=== PATIENT | male | born 1980 | race Caucasian/White ===

== ENCOUNTER 2020-05-09 13:42 | Outpatient (REF) | payer MEDICARE, MEDICAID, SELFPAY | END 2020-05-09 13:43 | disposition home or self-care (01) | LOC: HO.LAB 13:42 | PROVIDERS: Visit Provider Internal Medicine | DX: Z20.828 Contact with and (suspected) exposure to other viral communicable diseases (principal) | CPT/HCPCS: 36415; C9803; U0003 ==

== ENCOUNTER 2020-12-27 06:26 | Emergency (ER) | payer MEDICARE, MEDICAID, SELFPAY ==
[2020-12-27 06:41] VITALS: RESP 20; BMI 30.4
--- NOTE | 2020-12-27 07:11 | ED.GENADULT ---
HPI - General Adult General Chief complaint: General Medical Stated complaint: COVID Test Time Seen by Provider: 12/27/20 07:11 Source: patient Mode of arrival: ambulatory Limitations: no limitations History of Present Illness MD complaint: wants COVID test Onset (ago): day(s) (1) Severity: mild Relieving factors: none Exacerbating factors: none Associated symptoms: denies other symptoms Treatments prior to arrival: none Related Data Allergies Allergy/AdvReac Type Severity Reaction Status Date / Time adhesive [Adhesive] Allergy Unknown RASH FROM Unverified 01/21/20 15:17 GLUE Review of Systems Review of Systems: Constitutional : No Fever, No Chills, Cardiovascular : No Chest Pain, No SOB Respiratory : No Dyspnea, no cough Gastrointestinal : No abdominal pain, no n/v/d Musculoskeletal : No Joint Swelling, no myalgias Skin : No rash, no skin lesions Neuro : No Weakness, No Numbness PMFSH Past Medical History Attestation statement: The following information was validated with the patient. Medical History (Updated 12/27/20 @ 07:52 by Gaby Tobin DO) Diabetes Social History Social History (Updated 12/27/20 @ 07:52 by Gaby Tobin DO) Patient Tobacco Use Status: Current everyday Tobacco user Advance Directives: No Advance Directives Information Provided: No Physical Exam Vital Signs: Vital Signs: Last Vital Signs Temp 98.3 F 12/27/20 07:31 Pulse 88 12/27/20 07:31 Resp 18 12/27/20 07:31 BP 147/85 H 12/27/20 07:31 Pulse Ox 96 12/27/20 07:31 Body Mass Index 30.4 Appearance: Alert. Oriented X3. No acute distress. Eyes: Pupils equal, round and reactive to light. ENT: Pharynx normal. Neck: Normal inspection. Neck supple. CVS: Normal heart rate and rhythm. Pulses normal. Respiratory: No respiratory distress. Breath sounds normal. Abdomen: Soft and no signs of trauma Skin: Skin warm and dry. Normal skin color. Extremities: No lower extremity edema. Neuro: Oriented X 3. No motor deficit. No sensory deficit. Medical Decision Making MDM Narrative Medical decision making narrative: asymptomatic patient requesting COVID test in ED - has no complaints other than checking in to the ED so he could get a rapid covid test Lab Data Labs: Lab Results 12/27/20 Range/Units 06:51 COVID-19 ([facility]) Negative (Negative) COVID-19 Clin Com See Note Discharge Plan Discharge Clinical Impression: Close exposure to 2019-nCoV Patient Disposition: Home, Self-Care Instructions: COVID-19 (Coronavirus Disease 2019) (ED) Additional Instructions: return to ED for any worsening symptoms or concerns you need to wear a mask and quarantine yourself given your close exposures to COVID - you should repeat testing in 3 days Stand Alone Forms: Work/School Release Interventions: ED Discharge Assessment Last Done: 12/27/20 07:59 Discharge Date/Time: 12/27/20 08:00
[2020-12-27 07:22] LABS: COVID-19 Test Negative (Negative)
[2020-12-27 07:31] VITALS: BP 147/85; PULSE 88; RESP 18; TEMP 36.8; O2SAT 96
== END 2020-12-27 08:00 | disposition home or self-care (01) ==
PROVIDERS: Emergency Provider Emergency Medicine; PCP Family Medicine
DX: Z20.822 Contact with and (suspected) exposure to COVID-19 (principal); E11.9 Type 2 diabetes mellitus without complications; F17.210 Nicotine dependence, cigarettes, uncomplicated
CPT/HCPCS: 36415; 87635; 99283

== ENCOUNTER 2020-12-29 09:31 | Outpatient (REF) | payer MEDICARE, MEDICAID, SELFPAY ==
[2020-12-29 10:08] LABS: COVID-19 Test Negative (Negative)
== END 2020-12-29 09:32 | disposition home or self-care (01) ==
LOC: HO.LAB 09:31
PROVIDERS: PCP Family Medicine; Visit Provider Internal Medicine
DX: Z20.822 Contact with and (suspected) exposure to COVID-19 (principal)
CPT/HCPCS: 36415; 87635; C9803

== ENCOUNTER 2021-09-30 19:37 | Emergency (ER) | payer MEDICARE, MEDICAID, SELFPAY ==
[2021-09-30 21:21] VITALS: BP 131/78; PULSE 79; RESP 18; TEMP 36.8; O2SAT 98; BMI 35.7
--- NOTE | 2021-09-30 22:44 | ED.WOUNDLAC ---
HPI - Wound/Laceration General Chief Complaint: Wound/Laceration Stated Complaint: lac r laceration Time Seen by Provider: 09/30/21 21:54 Source: patient Mode of arrival: ambulatory History of Present Illness HPI narrative: 41-year-old male who presents with laceration to the right anterior low leg from a piece of glass. Patient reports that his last tetanus shot was within the past 2 years. Related Data Previous Rx's Medication Instructions Recorded amoxicillin 875 mg-potassium 1 tab PO Q12H 7 Days #14 tab 09/30/21 clavulanate 125 mg tablet Allergies Allergy/AdvReac Type Severity Reaction Status Date / Time adhesive [Adhesive] Allergy Unknown RASH FROM Unverified 01/21/20 15:17 GLUE Review of Systems Review of Systems: Pertinent positives and negatives as stated in HPI 10 point review of systems is otherwise negative. PMFSH Past Medical History Source: nursing notes reviewed Medical History Diabetes Social History Social History Patient Tobacco Use Status: Current everyday Tobacco user Advance Directives: No Advance Directives Information Provided: No Physical Exam Vital Signs: Vital Signs: Last Vital Signs Temp 98.3 F 09/30/21 21:21 Pulse 79 09/30/21 21:21 Resp 18 09/30/21 21:21 BP 131/78 09/30/21 21:21 Pulse Ox 98 09/30/21 21:21 BMI result Body Mass Index 35.7 VITAL SIGNS: Reviewed. GENERAL: Well developed, well nourished, in no acute distress. HEAD: Normocephalic/atraumatic EYES: PERRLA, EOMI LUNGS: Normal breath sounds. SpO2<98> CARDIOVASCULAR: Regular rate and rhythm without noted murmurs ABDOMEN: Soft, non-tender, non-distended with bowel sounds. MUSCULOSKELETAL: No tenderness, deformities, or effusions noted on gross inspection. EXTREMITIES: No cyanosis, clubbing or edema RIGHT LOWER EXTREMITY: There is a 4-1/2 cm oblique laceration to the anterior aspect of the tibial area that goes through the muscle fascia down to the bone, sensation is intact distal, both Dorsi and plantar flexion are intact. SKIN: Inspection of the skin reveals no rashes NEUROLOGIC: Alert and oriented x 4. Strength and sensation to light touch were grossly intact x 4. Course Course Course Narrative: This is a 41-year-old male with history and clinical presentation of laceration to right anterior lower leg with neurovascular intact as well as motor, patient is diabetic, both internal and external sutures were placed and patient received combination analgesics as well as antibiotics. Procedures Laceration Laceration 1: Site: lower extremity Side (If applicable): right Size (cm): 4.5 Description: linear, flap and clean Depth: involves muscle layer Local Anesthetic: lidocaine 2% and with epi Amount of anesthesia used (mL): 3 Pre-repair: wound explored, irrigated extensively and deep structures intact Skin layer closed with: nylon and vicryl Size (cm): 4-0 Number of sutures: 7 Technique: horizontal mattress Subcutaneous layer closed with: vicryl Size: 4-0 Number of sutures: 2 Technique: simple, interrupted Muscle layer closed with: vicryl Size: 4-0 Number of sutures: 2 Technique: simple, interrupted Discharge Plan Discharge Clinical Impression: Laceration Patient Disposition: Home, Self-Care Instructions: Care For Your Stitches (ED), Laceration (ED) Additional Instructions: 1. Keep Aleksander wrap and dressing in place for 24 hours. Afterwards, you can remove and gently cleanse the wound with soap and water and gently dry afterwards and apply antibiotic ointment. You should then cover the wound with gauze and reapply the Aleksander wrap. 2. Recommend [id number] Tylenol/ibuprofen as needed for pain control, keeping the extremity elevated when possible will also help out with pain control and consider application ice to unexposed skin. 3. Please follow-up with your primary care provider in 7 days for assessment and likely removal of the sutures (7). You need to complete the entire course of antibiotics. Return to the ER for worsening symptoms. Prescriptions: New amoxicillin-pot clavulanate 875-125 mg tablet 1 tab PO Q12H 7 Days Qty: 14 0RF Referrals: Maryana Kimble MD [Primary Care Provider] - Stand Alone Forms: Work/School Release
[2021-09-30] MEDS: Ibuprofen 400 MG TABLET PO (22:49)
[2021-09-30] MEDS: Acetaminophen 325 MG TABLET 975 MG PO (22:49)
[2021-09-30] MEDS: Amoxicillin/Potassium Clav 875 MG TABLET PO (22:49)
[2021-09-30] MEDS: Lidocaine HCl 2 % 20 ML VIAL INFILTRATI (22:50)
== END 2021-09-30 23:00 | disposition home or self-care (01) ==
PROVIDERS: Emergency Provider Student in an Organized Health Care Education/Training Program; PCP Family Medicine
DX: S81.811A Laceration without foreign body, right lower leg, initial encounter (principal); W25.XXXA Contact with sharp glass, initial encounter; Y93.9 Activity, unspecified; Y92.9 Unspecified place or not applicable; Y99.9 Unspecified external cause status
CPT/HCPCS: 12002; 99283

== ENCOUNTER 2023-04-10 10:08 | Outpatient (REF) | payer MEDICARE, MEDICAID, SELFPAY ==
[2023-04-10 11:43] LABS: Estimated Average Glucose 151 mg/dL; Hemoglobin A1c % 6.9 % (<6.0)
[2023-04-10 11:50] LABS: Alanine Aminotransferase 12 U/L (0-40); Albumin Level 4.4 g/dL (3.5-5.0); Alkaline Phosphatase 66 U/L (39-117); Anion Gap 12 (12-20); Aspartate Amino Transferase 13 U/L (5-37); Bilirubin Direct 0.1 mg/dL (0.0-0.5); Bilirubin Total 0.3 mg/dL (0.0-1.0); Blood Urea Nitrogen 22 mg/dL (9-16); Calcium 9.2 mg/dL (8.4-10.2); Carbon Dioxide 24 mmol/L (22-29); Chloride 108 mmol/L (96-108); Cholesterol 163 mg/dL (<200); Estimated Glomerular Filt Rate > 60; Glucose Random 158 mg/dL (60-115); HDL Cholesterol 28 mg/dL (>40); LDL Cholesterol Calculated 118 mg/dL (<100); Potassium 4.6 mmol/L (3.3-5.1); Sodium 139 mmol/L (135-145); Total Protein 6.7 g/dL (6.5-8.0); Triglycerides 88 mg/dL (<150)
[2023-04-10 11:58] LABS: Creatinine Urine 74.78 mg/dL; Microalbum/Creatinine Ratio Ur 22.7 ug/mg cr (<30)
[2023-04-10 12:15] LABS: HIV AB/AG Nonreactive (Nonreactive); HIV Num 1 0.05 S/CO (0.00-0.99); ~HepC Num1 0.26 S/CO (0.00-0.79); ~Hepatitis C Antibody Nonreactive (Nonreactive)
== END 2023-04-10 10:09 | disposition home or self-care (01) ==
LOC: HO.HHCL 10:08
PROVIDERS: Visit Provider Family Medicine
DX: Z11.3 Encounter for screening for infections with a predominantly sexual mode of transmission (principal); Z11.59 Encounter for screening for other viral diseases; Z11.4 Encounter for screening for human immunodeficiency virus [HIV]; E78.5 Hyperlipidemia, unspecified; I10 Essential (primary) hypertension; E11.9 Type 2 diabetes mellitus without complications
CPT/HCPCS: 36415; 80048; 80061; 80076; 82043; 82570; 83036; 86803; 87389